=== PATIENT | male | born 1950 | race Caucasian/White ===

== ENCOUNTER 2017-05-29 06:29 | Inpatient (IN) | payer BC ==
[2017-05-23 12:28] VITALS: BMI 31.4
[2017-05-29] MEDS ORDERED: oxyCODONE HCL 10 MG SUSTAINED ACTING TABLET PO STA (06:48)
--- NOTE | 2017-05-29 06:52 | HP ---
History & Physical Update - History History: No Change - Physical Physical: No Change - Assessment Assessment: No Change - Plan Plan: No Change (Here today for electove repair of his L5-S1 spondylolithesis with radiculopathy. Low back pain with RLE extension to include numbness to right foot)
[2017-05-29] MEDS ORDERED: LIDOCAINE 1%/EPI 1:100000 (20 ML MULTI DOSE VIAL) ONE (07:17)
[2017-05-29] MEDS ORDERED: GELATIN, ABSORBABLE 100 EACH SPONGE TP ONE (07:17)
[2017-05-29] MEDS ORDERED: THROMBIN (BOVINE) 5,000 UNIT VIAL TP ONE (07:17)
[2017-05-29] MEDS ORDERED: ePHEDrine SULFATE 50 MG/1 ML AMPULE ONE (07:24)
[2017-05-29] MEDS ORDERED: LIDOCAINE HCL/PF 2% SDV 5ML VIAL ONE (07:24)
[2017-05-29] MEDS ORDERED: ROCURONIUM BROMIDE 50 MG/5 ML VIAL ONE (07:25)
[2017-05-29] MEDS ORDERED: PROPOFOL 20 ML ONE (07:25)
[2017-05-29] MEDS ORDERED: MIDAZOLAM HCL 2 MG/2 ML SINGLE DOSE VIAL ONE ×3 (07:25→09:33)
[2017-05-29] MEDS ORDERED: BUPIVACAINE LIPOSOME/PF (EXPAREL) 266 MG/20 ML VIAL ONE (07:29)
[2017-05-29] MEDS ORDERED: BUPIVACAINE HCL/PF (5 MG/ML) 30 ML VIAL IJ ONE (07:29)
[2017-05-29] MEDS ORDERED: PHENYLEPHRINE HCL 10 MG/1 ML SINGLE DOSE VIAL ONE (07:31)
[2017-05-29] MEDS ORDERED: DEXAMETHASONE SOD PHOSPHATE 4 MG/1 ML VIAL ONE (07:31)
[2017-05-29] MEDS ORDERED: ONDANSETRON 4 MG/2 ML VIAL ONE (07:31)
[2017-05-29] MEDS ORDERED: SODIUM CHLORIDE 0.9% P/F 10 ML VIAL IJ ONE (07:31)
[2017-05-29] MEDS ORDERED: SUCCINYLCHOLINE CHLORIDE 200 MG/10 ML VIAL ONE (07:38)
[2017-05-29] MEDS ORDERED: BUPIVACAINE HCL/PF 0.5% (5MG/ML) 10 ML VIAL ONE (08:39)
[2017-05-29] MEDS ORDERED: GUM MASTIC/STORAX/MSAL/ALCOHOL 1 DRP DROPSBTL MC ONE (11:01)
--- NOTE | 2017-05-29 11:14 | OP ---
Operative Note - Note: Operative Date: 05/29/17 Pre-Operative Diagnosis: Lumbar spondylolithesis with radiculopathy Operation: TLIF L5-S1 Post-Operative Diagnosis: Same as Pre-op Surgeon: Terry Oglesby Chemical Instrumentation Officer: Yair Huntley Anesthesiologist/CONFERENCE ORGANIZER: Debbie Morris (TLI{) Anesthesia: Spinal Estimated Blood Loss (mls): 25 Fluid Volume Replaced (mls): 1,100 Operative Report Dictated: Yes
[2017-05-29] MEDS ORDERED: oxyCODONE HCL 5 MG TABLET PO PRN (11:16)
--- NOTE | 2017-05-29 11:16 | SURG ---
Surgery Assistant Warehouse Manager Note Assistant Warehouse Manager: Yair Huntley PA-C Date of Service: 05/29/17 Diagnosis: L5/S1 spndylolithesis with radiculopathy Procedure: Transforaminal lumbar interbody fusion, decompression, instrumentation L5/S1, allograft implant, neuromonitoring I was present for the entirety of the operative procedure. For further detail, please refer to operative report. Visit type - Case Type Case Type: Scheduled Admission - New patient This patient is new to me today: Yes Date on this admission: 05/29/17
[2017-05-29] MEDS ORDERED: ACETAMINOPHEN 325 MG TABLET (FP) PO SCH (11:30)
[2017-05-29 12:13] VITALS: TEMP 98.3
[2017-05-29] MEDS ORDERED: oxyCODONE HCL 5 MG TABLET ONE ×2 (12:55→14:10)
[2017-05-29] MEDS ORDERED: ONDANSETRON 4 MG/2 ML VIAL IVPUSH PRN (13:27)
[2017-05-29] MEDS ORDERED: LACTATED RINGERS SOLUTION 1,000 ML IV SCH (13:30)
[2017-05-29] MEDS ORDERED: oxyCODONE HCL 5 MG TABLET PO ONE (14:13)
[2017-05-29] MEDS ORDERED: CEFAZOLIN 1 GM/D5W 1 GM/50 ML BAG ONE (16:10)
[2017-05-29] MEDS ORDERED: traMADol HCL 50 MG TABLET ONE (17:14)
[2017-05-29] MEDS ORDERED: CEFAZOLIN 2 GM/D5W 2 GM/50 ML ML IVPB ONE (17:15)
[2017-05-29 17:46] VITALS: BP 152/81; PULSE 81
--- NOTE | 2017-05-29 20:52 | OP ---
DATE OF OPERATION: 05/29/2017 PREOPERATIVE DIAGNOSES: 1. Spondylolisthesis at L5-S1. 2. Spinal stenosis, L5-S1. POSTOPERATIVE DIAGNOSES: 1. Spondylolisthesis at L5-S1. 2. Spinal stenosis, L5-S1. PROCEDURE PERFORMED: 1. Transforaminal lumbar interbody fusion, L5-S1. 2. Placement of instrumentation. 3. Placement of prosthetic cage. SURGEON: Terry Oglesby MD HOT AIR FURNACE INSTALLER REPAIRER: ETHAN Bajwa ESTIMATED BLOOD LOSS: 50 mL INTRAVENOUS FLUIDS: Per Anesthesia. ANESTHESIA: Spinal/TLIP. COMPLICATIONS: None. DISPOSITION: The patient was brought to the PACU in stable condition. INDICATION FOR SURGERY: The patient is a 67-year-old gentleman who has been suffering from pain from his back down his legs. X-rays and MRI were completed which noted that he had spinal stenosis at L5-S1 secondary to a spondylolisthesis. He had gone through an exhaustive course of treatment for this which included medications, physical therapy, as well as injections. Unfortunately, his pain continued to persist despite all this. At this point, risks, benefits, and alternatives were discussed, and the patient consented to surgery. DESCRIPTION OF PROCEDURE: Patient was brought to the operating room by the anesthesia staff. After appropriate patient identification was performed, spinal anesthesia was given. A TLIP block was also given. The patient was able to position himself prone onto the OR table to avoid all bony prominences. The C-arm was brought in. The L5-S1 pedicle was marked off. Next, 10 mL of lidocaine with epinephrine was injected into his back. At this time, his back was prepped and draped in a sterile manner. At this point, timeout was completed. Incisions were made bilaterally over the L5 and S1 pedicles. Dissection was carried down to the fascia. The fascia was then split open at this time. The C-arm was brought in. Trocars were advanced into both the L5 and S1 pedicles. Through the trocars, a guidewire was inserted. Tap was performed. On the right-hand side, screws were inserted with a retractor blade set up, and the [id number] screws were also inserted. Retractor blades were set up to expose the L5-S1 facet joint. This was confirmed with x-ray. The facet joint was removed. Using a series of pituitaries, Kerrisons, and curettes, the diskectomy was completed at this time. Endplates were decorticated at this time. Bone graft was laid down. A cage filled with bone graft was placed in. Tulip heads were placed over the screws. A gildardo was measured and placed in. Caps were placed on. Compression was applied. Final tightening was applied. On the left-hand side, a gildardo was measured and placed in. Gildardo was placed down. Caps were placed on. Compression and final tightening was performed. All extra instrumentation was removed at this time. AP and lateral x-rays confirmed instrumentation to be in good position. The fascia was closed with a No. 1 Vicryl suture. Subcutaneous tissues were closed with 2-0 Vicryl suture. Skin was closed with 3-0 Monocryl suture. Dermabond was applied. Steri-Strips were applied. A sterile dressing was applied. Patient was placed supine on the OR bed and brought to the PACU in stable condition. Dwayne [id number]
== END 2017-05-29 17:15 | disposition home or self-care (01) | DRG 460 ==
LOC: FM/S 06:29
PROVIDERS: ADMIT Orthopaedic Surgery Orthopaedic Surgery of the Spine; ATTEND Orthopaedic Surgery Orthopaedic Surgery of the Spine
PROC: 01NB0ZZ Release Lumbar Nerve, Open Approach (ICD-10-PCS; 2017-05-29)
PROC: 0SG30K1 Fusion of Lumbosacral Joint with Nonautologous Tissue Substitute, Posterior Approach, Posterior Column, Open Approach (ICD-10-PCS; principal; 2017-05-29 09:30)
DX: M43.17 Spondylolisthesis, lumbosacral region (principal); M48.07 Spinal stenosis, lumbosacral region
CPT/HCPCS: 72100-TC-FY; 94760

== ENCOUNTER 2018-04-19 09:04 | Inpatient (IN) | payer BC ==
[2018-04-09 13:09] VITALS: BMI 32.0
--- NOTE | 2018-04-19 07:18 | HP ---
Admitting History and Physical - Admission Chief Complaint: right hip osteoarthritis x years History of Present Illness: 68-year-old male presents in regard to his right hip. Long-standing history of right hip osteoarthritis. Patient complains of pain, limited range of motion, difficulty ambulating, and difficulty completing activities of daily living. Patient has failed conservative treatment measures including PO medications, activity modification, exercise programs, and injections. At this point patient would like to proceed with surgical intervention, right total hip arthroplasty MAKOplasty. - Past Medical History Cardiovascular: Yes: HTN Psych: Yes: Depression - Past Surgical History Additional Past Surgical History: See written history and physical. - Smoking History Smoking history: Never smoked Have you smoked in the past 12 months: No - Alcohol/Substance Use Hx Alcohol Use: Yes (SOCIALLY) Home Medications - Allergies Allergies/Adverse Reactions: Allergies Allergy/AdvReac Type Severity Reaction Status Date / Time No Known Drug Allergies Allergy Verified 04/09/18 12:58 - Home Medications Home Medications: Ambulatory Orders Escitalopram Oxalate [Lexapro -] 10 mg PO DAILY 01/23/17 Hydrocodone/Acetaminophen [Vicodin 5-300 mg Tablet] 1 each PO Q6H PRN #10 tablet MDD 4 05/29/17 Diclofenac Sodium 75 mg PO DAILY 04/09/18 Olmesartan Medoxomil [Benicar (Nf)] 40 mg PO DAILY 04/09/18 Review of Systems - Review of Systems Musculoskeletal: reports: Decreased ROM (right hip), Joint Pain (right hip) Physical Examination Constitutional: Yes: Well Nourished, No Distress Eyes: Yes: Conjunctiva Clear HENT: Yes: Atraumatic, Normocephalic Neck: Yes: Supple Cardiovascular: Yes: Regular Rate and Rhythm Respiratory: Yes: Regular Gastrointestinal: Yes: Soft ...Rectal Exam: Yes: Deferred Musculoskeletal: Yes: Joint Stiffness (Right hip) Assessment/Plan 68-year-old male presents in regard to his right hip. Long-standing history of right hip osteoarthritis. Patient complains of pain, limited range of motion, difficulty ambulating, and difficulty completing activities of daily living. Patient has failed conservative treatment measures including PO medications, activity modification, exercise programs, and injections. At this point patient would like to proceed with surgical intervention, right total hip arthroplasty MAKOplasty. pros, cons, risks, benefits, and alternatives of a right total hip are the plastic were discussed with the patient at length. Patient confirms his understanding and consents to proceed with a right total hip arthroplasty Jcarlos
[~2018-04-19 09:04] MED LIST: CEFAZOLIN 2 GM in DEXTROSE 5%-WATER - 50 ML IVPB ONE; ROPIVICAINE 0.2%/MORPH PF/KETOROLAC - 51ML DISP.SYRINGE IA ONE; TRANEXAMIC ACID 1000 MG/10 ML VIAL IVPUSH ONE
[2018-04-19] MEDS ORDERED: VANCOMYCIN 1,000 MG VIAL (RESTRICTED TO ID ONLY) ONE (09:55)
[2018-04-19] MEDS ORDERED: ceFAZolin SODIUM 1 GM VIAL ONE ×2 (09:55→11:40)
[2018-04-19] MEDS: PANTOPRAZOLE 40 MG TABLET (FP) PO ONE ×2 (10:25→18:04)
[2018-04-19] MEDS: GABAPENTIN 300 MG CAPSULE (FP) PO ONE ×2 (10:25→18:00)
[2018-04-19] MEDS: oxyCODONE HCL 10 MG SUSTAINED ACTING TABLET PO ONE ×2 (10:25→18:00)
[2018-04-19] MEDS: CELECOXIB 200 MG CAPSULE PO ONE ×2 (10:25→18:00)
[2018-04-19] MEDS ORDERED: DEXAMETHASONE SOD PHOSPHATE/PF 10 MG/ML SDV ONE (10:45)
[2018-04-19] MEDS ORDERED: BUPIVACAINE HCL/PF (5 MG/ML) 30 ML VIAL IJ ONE (10:46)
[2018-04-19] MEDS ORDERED: MIDAZOLAM HCL 2 MG/2 ML SINGLE DOSE VIAL ONE (10:46)
[2018-04-19] MEDS ORDERED: oxyCODONE HCL 5 MG TABLET PO PRN ×2 (11:26)
[2018-04-19] MEDS ORDERED: PROMETHAZINE HCL 25 MG/1 ML VIAL IVPUSH PRN (11:26)
[2018-04-19] MEDS ORDERED: ONDANSETRON 4 MG/2 ML VIAL IVPUSH PRN ×2 (11:26→15:34)
[2018-04-19] MEDS ORDERED: DEXAMETHASONE SOD PHOSPHATE 4 MG/1 ML VIAL ONE (11:40)
[2018-04-19] MEDS ORDERED: PROPOFOL 20 ML ONE ×5 (11:40)
[2018-04-19] MEDS ORDERED: SUCCINYLCHOLINE CHLORIDE 200 MG/10 ML VIAL ONE (11:40)
[2018-04-19] MEDS ORDERED: ePHEDrine SULFATE 50 MG/1 ML AMPULE ONE ×2 (12:28→12:42)
[2018-04-19] MEDS ORDERED: TRANEXAMIC ACID 1000 MG/10 ML VIAL ONE (14:10)
[2018-04-19] MEDS ORDERED: ROPIVICAINE 0.2%/MORPH PF/KETOROLAC - 51ML DISP.SYRINGE IA ONE (14:35)
[2018-04-19] MEDS ORDERED: VANCOMYCIN 1,000 MG VIAL (RESTRICTED TO ID ONLY) IVPB ONE (14:36)
[2018-04-19] MEDS ORDERED: TRANEXAMIC ACID 1000 MG/10 ML VIAL IVPB ONE (14:38)
[2018-04-19] MEDS ORDERED: KETOROLAC TROMETHAMINE 30 MG/1 ML VIAL IVPUSH ONE (15:25)
[2018-04-19] MEDS ORDERED: ACETAMINOPHEN 1000 MG/100 ML VIAL (NON FORMULARY) IVPB ONE ×2 (15:30→15:33)
--- NOTE | 2018-04-19 15:33 | OP ---
Operative Note - Note: Operative Date: 04/19/18 Pre-Operative Diagnosis: right hip OA Operation: right PHILIPPE JOSH Post-Operative Diagnosis: Same as Pre-op Surgeon: Emer Noble Mechanic'S Assistant: Leah Garcia Anesthesia: Spinal Estimated Blood Loss (mls): 300
[2018-04-19] MEDS ORDERED: MAG HYDROX/AL HYDROX/SIMETH 30 ML UNIT-DOSE CUP PO PRN (15:34)
[2018-04-19] MEDS ORDERED: MAGNESIUM HYDROX 2400MG/30ML ORAL SUSPENSION 30 ML CUP PO PRN (15:34)
[2018-04-19] MEDS ORDERED: traMADol HCL 50 MG TABLET PO ONE (15:35)
[2018-04-19] MEDS ORDERED: ACETAMINOPHEN INJECTION 100 ML IVPB ONE (15:35)
[2018-04-19] MEDS ORDERED: LACTATED RINGERS SOLUTION 1,000 ML IV SCH (15:45)
--- NOTE | 2018-04-19 15:56 | OP ---
DATE OF OPERATION: 04/19/2018 PREOPERATIVE DIAGNOSIS: Right hip osteoarthritis. POSTOPERATIVE DIAGNOSIS: Right hip osteoarthritis. PROCEDURE: Right total hip replacement with Makoplasty robotic navigation. ATTENDING: Miguel A Jade M.D. ENGRAVER STEEL PLATE: Kelsi Hughes ANESTHESIA: Spinal plus sedation. ESTIMATED BLOOD LOSS: 300 mL. COMPLICATIONS: None. DISPOSITION: The patient was transferred to the PACU in stable condition. IMPLANTS USED: Stevenson Accolade 2 size 6 femoral component, Stevenson Tritanium 62-mm acetabular component, with multiple acetabular screws, MDM bipolar head ball and liner with inner 28 plus 0 mm ceramic head ball. INDICATION: This is a 68-year-old male who presents to the office complaining of severe right hip pain for many years. The patient was seen and examined by Dr. Jade with diagnosis of severe right hip osteoarthritis. He was initially treated conservatively with injections of medications and physical therapy but continued to have severe pain and ambulatory dysfunction, he was therefore indicated for a right total hip replacement. The risks, benefits, and alternatives to the procedure were explained to the patient in great detail, and he elected to proceed with the surgery. DESCRIPTION OF PROCEDURE: On the day of surgery, the patient was taken to the operating room and placed on the OR table. Spinal anesthesia was administered by the anesthesiologist. The patient was then positioned in the lateral decubitus position on the table and all bony prominences were padded. An axillary roll was placed. The operative hip was then prepped and draped in the usual sterile fashion and intravenous antibiotics were given for infection prophylaxis. A surgical time-out was then performed with the team, and the patients identity, procedure, side, availability of implants, and the administration of antibiotics were confirmed. An approximately 15-cm longitudinal incision was made through the skin centered on the greater trochanter of the hip. This dissection was carried down through the subcutaneous tissues to the deep fascia. This fascia was then incised and a Cobra was placed around the inferior femoral neck. Electrocautery was used to reflect the anterior 40% of the gluteus medius and minimus starting at the musculotendinous junction and leaving a cuff for closure. This was reflected to reveal the capsule of the hip joint. An anterior capsulectomy was performed and the femoral head and neck were visualized. Grade 4 changes were noted diffusely throughout the joint. At this point, three small stab incisions were made superior to the main incision along the iliac crest. Three self-drilling Steinmann pins were then placed and the [employer] pelvic array was attached. Reference points on the limb were then entered into the robotic device and the limb length deficiency, offset, and femoral neck resection level were then calculated by the software. The hip was then dislocated with traction and external rotation. An oscillating saw was used to make the femoral neck cut at the level previously templated, and the femoral head was removed. Attention was then turned to the acetabulum. Retractors were then placed around the acetabulum and the labrum was removed. An acetabular checkpoint pin and the [employer] software were used to register the contours of the acetabulum. The acetabulum was then reamed in a single stage to the preoperatively templated size using the Freddy robotic arm. The appropriately sized cup was then impacted and had solid fixation as well as the preset inclination and version of 40 and 20 degrees, respectively. A polyethylene liner was then placed in the cup. Attention was then turned back to the femur, which was externally rotated for improved visualization. A femoral neck elevator was used to present the femoral neck cut, a box osteotome was used to enter the femoral canal, and a canal finder was used to go down the femoral shaft. The Freddy broaches were used sequentially until the optimal scratch fit was achieved. This correlated with the preoperatively templated size. From here, several different offset head and neck configurations were tested until excellent stability and length were obtained. These measurements were quantified using the [employer] software. All trial components were then removed, the femur was copiously irrigated, and the final components were placed. Leg length and stability were checked again and found to be excellent. Irrigation was performed again. Wound closure was started by repairing the abductor muscles with a no. 2 FiberWire stitch in a Krackow configuration passed through bone tunnels in the greater trochanter and tied over a bony bridge. This repair was then reinforced with a 0 V-Loc 180 barbed suture. Next, no. 1 Polysorb and 0 V-Loc 180 were used to close the fascia. The deep subcutaneous tissue was closed with no. 1 Polysorb sutures, and 2-0 Polysorb was used for the superficial subcutaneous tissue. The skin was closed using both 3-0 V-Loc 90 suture in a running subcuticular fashion and SwiftSet skin adhesive. The Freddy array and pins were removed from the iliac crest and the stab incision sites were irrigated and closed with 4-0 Polysorb sutures and SwiftSet skin adhesive. Once this was completed, a sterile dressing was applied. The patient was then awakened and taken to the PACU in stable condition. ADDENDUM: After final implants were placed a 3-minute dilute Betadine lavage was performed. Following this, the wound was thoroughly irrigated with normal saline via pulsatile lavage and wound closure was begun. MIGUEL A JADE M.D. [id number]
[2018-04-19] MEDS: ACETAMINOPHEN 325 MG TABLET (FP) PO SCH (18:05)
[2018-04-19] MEDS: traMADol HCL 50 MG TABLET PO SCH (18:06)
[2018-04-19] MEDS: KETOROLAC TROMETHAMINE 30 MG/1 ML VIAL IVPUSH SCH ×2 (18:06→21:18)
[2018-04-19] MEDS: CEFAZOLIN 2 GM/D5W 2 GM/50 ML ML IVPB SCH (18:34)
[2018-04-19] MEDS: CELECOXIB 200 MG CAPSULE PO SCH (21:17)
[2018-04-19] MEDS: GABAPENTIN 300 MG CAPSULE (FP) PO SCH (21:18)
[2018-04-19] MEDS: oxyCODONE HCL 10 MG SUSTAINED ACTING TABLET PO SCH (21:18)
[2018-04-19] MEDS: SENNOSIDES/DOCUSATE COMBO (SENNA PLUS) TABLET (UD) PO SCH (21:19)
[2018-04-19] MEDS: ASCORBIC ACID 500 MG TABLET (FP) PO SCH (21:19)
[2018-04-20] MEDS ORDERED: DEXAMETHASONE SOD PHOSPHATE 10 MG/1 ML VIAL IVPB ONE
[2018-04-20] MEDS: ACETAMINOPHEN 325 MG TABLET (FP) PO SCH ×4 (02:18→18:43)
[2018-04-20] MEDS: CEFAZOLIN 2 GM/D5W 2 GM/50 ML ML IVPB SCH (02:22)
[2018-04-20] MEDS: traMADol HCL 50 MG TABLET PO SCH ×4 (04:30→17:55)
[2018-04-20] MEDS: KETOROLAC TROMETHAMINE 30 MG/1 ML VIAL IVPUSH SCH ×2 (04:45→09:41)
[2018-04-20 08:22] LABS: HEMATOCRIT 33.3 % (35.4-49); HEMOGLOBIN 11.4 GM/dl (11.7-16.9); MCH 29.6 pg (25.7-33.7); MCHC 34.3 g/dl (32.0-35.9); MEAN CELL VOLUME 86.4 fl (80-96); PLATELET COUNT 148 K/MM3 (134-434); RBC 3.86 M/mm3 (4.00-5.60); RDW 12.1 % (11.9-15.9); WHITE BLOOD COUNT 13.4 K/mm3 (4.0-10.8)
--- NOTE | 2018-04-20 08:33 | PN ---
Progress Note, Physician Chief Complaint: day 1 s/p spinal/block for R THR - Current Medication List Current Medications: Active Medications Acetaminophen (Tylenol -) 650 mg PO Q6H [facility] Stop: 04/22/18 11:29 Last Admin: 04/20/18 06:18 Dose: 650 mg Al Hydroxide/Mg Hydroxide (Mylanta Oral Suspension -) 30 ml PO Q4H PRN PRN Reason: DYSPEPSIA Ascorbic Acid (Vitamin C -) 500 mg PO BID [facility] Last Admin: 04/19/18 21:19 Dose: 500 mg Aspirin (Asa -) 325 mg PO DAILY@0800 [facility] Celecoxib (Celebrex -) 200 mg PO BID [facility] Last Admin: 04/19/18 21:17 Dose: 200 mg Escitalopram Oxalate (Lexapro -) 10 mg PO DAILY [facility] Gabapentin (Neurontin -) 300 mg PO BID [facility] Stop: 04/22/18 21:59 Last Admin: 04/19/18 21:18 Dose: 300 mg Ketorolac Tromethamine (Toradol Injection -) 30 mg IVPUSH Q6H [facility] Stop: 04/20/18 09:46 Last Admin: 04/20/18 04:45 Dose: 30 mg Magnesium Hydroxide (Milk Of Magnesia -) 30 ml PO PRN PRN PRN Reason: CONSTIPATION Multivitamins/Minerals/Vitamin C (Tab-A-Vit -) 1 tab PO DAILY [facility] Ondansetron HCl (Zofran Injection) 4 mg IVPUSH Q6H PRN PRN Reason: NAUSEA Oxycodone HCl (Roxicodone -) 5 mg PO Q3H PRN PRN Reason: PAIN LEVEL 1-5 Oxycodone HCl (Roxicodone -) 10 mg PO Q3H PRN PRN Reason: PAIN LEVEL 6-10 Oxycodone HCl (Oxycontin -) 10 mg PO BID [facility] Stop: 04/22/18 11:26 Last Admin: 04/19/18 21:18 Dose: 10 mg Pantoprazole Sodium (Protonix -) 40 mg PO DAILY [facility] Senna/Docusate Sodium (Pericolace -) 1 tablet PO BID [facility] Last Admin: 04/19/18 21:19 Dose: 1 tablet Tramadol HCl (Ultram -) 50 mg PO Q6HPO [facility] Last Admin: 04/20/18 04:30 Dose: 50 mg Valsartan (Diovan -) 320 mg PO DAILY CRISTINA - Objective Vital Signs: Vital Signs Temperature 98.0 F 04/20/18 06:00 Pulse Rate 71 04/20/18 06:00 Respiratory Rate 18 04/20/18 06:00 Blood Pressure 132/73 04/20/18 06:00 O2 Sat by Pulse Oximetry (%) 100 04/20/18 06:00 Labs: CBC, BMP 04/20/18 07:30 Assessment/Plan Doing well after R THR. Pt was able to ambulate this morning; minimal pain reported. No apparent anesthetic issues or complications noted.
[2018-04-20] MEDS: GABAPENTIN 300 MG CAPSULE (FP) PO SCH ×2 (09:40→21:04)
[2018-04-20] MEDS: SENNOSIDES/DOCUSATE COMBO (SENNA PLUS) TABLET (UD) PO SCH ×2 (09:40→21:04)
[2018-04-20] MEDS: oxyCODONE HCL 10 MG SUSTAINED ACTING TABLET PO SCH ×2 (09:40→21:03)
[2018-04-20] MEDS: ESCITALOPRAM OXALATE 10 MG TABLET (FP) PO SCH (09:40)
[2018-04-20] MEDS: ASPIRIN 325 MG TABLET PO SCH (09:40)
[2018-04-20] MEDS: VALSARTAN 160 MG TABLET (UD) PO SCH (09:40)
[2018-04-20] MEDS: CELECOXIB 200 MG CAPSULE PO SCH ×2 (09:40→21:04)
[2018-04-20] MEDS: PANTOPRAZOLE 40 MG TABLET (FP) PO SCH (09:40)
[2018-04-20] MEDS: MULTIVITAMINS (DAILY MVI) TABLET (FP) PO SCH (09:40)
[2018-04-20] MEDS: ASCORBIC ACID 500 MG TABLET (FP) PO SCH ×2 (09:40→21:04)
[2018-04-20 09:42] LABS: ANION GAP 7 MMOL/L (8-16); BLOOD UREA NITROGEN 23 mg/dl (7-18); CALCIUM 8.2 mg/dl (8.4-10.2); CHLORIDE 101 mmol/L (98-107); CO2 24 mmol/L (22-28); GLUCOSE,RANDOM 154 mg/dl (74-106); POTASSIUM 4.1 mmol/L (3.5-5.1); SODIUM 132 mmol/L (136-145)
[2018-04-20] MEDS ORDERED: PATIENT'S OWN MEDICATION (NON-FORMULARY) (Olmesartan Medoxomil 40 MG) PO SCH (10:00)
--- NOTE | 2018-04-20 22:51 | PN ---
Progress Note (short form) - Note Progress Note: Pt seen and examined. Doing well. AVSS Selected Entries 04/20/18 18:00 Temperature 98.4 F Pulse Rate 80 Respiratory 17 Rate Blood Pressure 135/75 O2 Sat by Pulse 95 Oximetry (%) Oxygen Delivery Room Air Method Laboratory Tests 04/20/18 04/20/18 07:30 07:30 WBC 13.4 H Hgb 11.4 L Hct 33.3 L Plt Count 148 Sodium 132 L Potassium 4.1 Chloride 101 Carbon Dioxide 24 Anion Gap 7 L BUN 23 H Creatinine 1.0 Creat Clearance w eGFR > 60 Random Glucose 154 H Calcium 8.2 L Gen: NAD RLE: c/d/i, NVID A/P POD#1 s/p R JOSH PT/OOB D/C home in AM after PT
--- NOTE | 2018-04-20 22:55 | DS ---
Physical Examination Vital Signs: Vital Signs Temperature 98.4 F 04/20/18 18:00 Pulse Rate 80 04/20/18 18:00 Respiratory Rate 17 04/20/18 20:02 Blood Pressure 135/75 04/20/18 18:00 O2 Sat by Pulse Oximetry (%) 97 04/20/18 20:02 Labs: CBC, BMP 04/20/18 07:30 04/20/18 07:30 Discharge Summary Reason For Visit: RIGHT HIP OSTEOARTHRITIS Current Active Problems Osteoarthritis of right hip (Acute) Procedures: Principal: right PHILIPPE JOSH Hospital Course: Admitted for elective surgery. Procedure performed without complications. Pt received postoperative antibiotic prophylaxis and DVT ppx. Ambulated with physical therapy. Stable for discharge home with outpatient followup. Condition: Stable - Instructions Diet, Activity, Other Instructions: Dr Noble - Hip Replacement Instructions Keep the Aquacel dressing on until removed by Dr. Noble in 10-14 days - it is antibacterial and waterproof and you can shower with it on. Call the office for a follow-up appointment with Dr. Noble in 10-14 days. [phone] Take one Aspirin 325mg daily for 6 weeks to prevent blood clots in your legs. Take one Pantoprazole 40mg daily for 6 weeks to protect against heartburn and ulcers. Take Cephalexin (antibiotic) 3x/day for 10 days to help prevent skin infection. Take Celebrex 200mg twice daily for 30 days to reduce swelling and inflammation. Take a multivitamin, stool softener and extra Vitamin C supplement daily. For pain: *Mild pain (1-3/10): Take 1 Tramadol tablet every 4 hours as needed. Moderate pain (4-6/10): Take 1 Tramadol tablet and 1 Percocet tablet every 4 hours as needed. Severe pain (7-10/10): Take 1 Tramadol tablet and 2 Percocet tablets every 4 hours as needed. Activity: You can put as much weight on the operative leg as you want. For the first 6 weeks, all you need to do is walk around the house, go up/down stairs, and sit down/get up. After 6 weeks when everything is healed (and bone has grown into the implant) you will be sent for more intensive outpatient physical therapy. Always use a walker or cane for balance and to prevent falls. Expect to see swelling / bruising from the operative site all the way down to your toes. Wear the compression stocking on the right leg during the day to minimize how much swelling there is in your foot/ankle. Don't wear the stocking at night. You don't have to wear the stocking on the other leg. Disposition: VNS/HOME HEALTH CARE - Home Medications Comprehensive Discharge Medication List: Ambulatory Orders Escitalopram Oxalate [Lexapro -] 10 mg PO DAILY 01/23/17 Olmesartan Medoxomil [Benicar -] 40 mg PO DAILY 04/09/18 Ascorbic Acid [Vitamin C -] 500 mg PO BID tablet 04/20/18 Aspirin [ASA -] 325 mg PO DAILY@0800 tablet 04/20/18 Celecoxib [CeleBREX -] 200 mg PO BID #60 capsule 04/20/18 Cephalexin Monohydrate [Keflex -] 500 mg PO TID #30 capsule 04/20/18 Multivitamins [Multivit ([facility] Formulary)] 1 tab PO DAILY tab 04/20/18 Oxycodone HCl/Acetaminophen [Percocet 5-325 mg Tablet] 1 - 2 tab PO Q4H PRN #60 tablet MDD 10 04/20/18 Pantoprazole Sodium [Protonix -] 40 mg PO DAILY #40 tablet.ec 04/20/18 Sennosides/Docusate Sodium [Pericolace -] 1 tablet PO BID tablet 04/20/18 traMADol HCL [Ultram -] 50 mg PO Q4H PRN #42 tablet MDD 6 04/20/18
[2018-04-20 23:04] VITALS: PULSE 73
[2018-04-21] MEDS: ACETAMINOPHEN 325 MG TABLET (FP) PO SCH ×2 (00:17→06:18)
[2018-04-21] MEDS: traMADol HCL 50 MG TABLET PO SCH ×2 (00:18→06:17)
[2018-04-21 06:54] VITALS: TEMP 98.5
[2018-04-21] MEDS: ASPIRIN 325 MG TABLET PO SCH (08:30)
[2018-04-21 08:58] LABS: HEMATOCRIT 31.2 % (35.4-49); HEMOGLOBIN 10.2 GM/dl (11.7-16.9); MCH 28.5 pg (25.7-33.7); MCHC 32.6 g/dl (32.0-35.9); MEAN CELL VOLUME 87.6 fl (80-96); MEAN PLT VOLUME 10.4 fl (7.5-11.1); PLATELET COUNT 135 K/MM3 (134-434); RBC 3.56 M/mm3 (4.00-5.60); RDW 12.4 % (11.9-15.9); WHITE BLOOD COUNT 9.4 K/mm3 (4.0-10.8)
[2018-04-21 09:51] VITALS: BP 134/64
[2018-04-21] MEDS: ASCORBIC ACID 500 MG TABLET (FP) PO SCH (09:52)
[2018-04-21] MEDS: VALSARTAN 160 MG TABLET (UD) PO SCH (09:52)
[2018-04-21] MEDS: GABAPENTIN 300 MG CAPSULE (FP) PO SCH (09:52)
[2018-04-21] MEDS: MULTIVITAMINS (DAILY MVI) TABLET (FP) PO SCH (09:53)
[2018-04-21] MEDS: SENNOSIDES/DOCUSATE COMBO (SENNA PLUS) TABLET (UD) PO SCH (09:53)
[2018-04-21] MEDS: CELECOXIB 200 MG CAPSULE PO SCH (09:53)
[2018-04-21] MEDS: PANTOPRAZOLE 40 MG TABLET (FP) PO SCH (09:53)
[2018-04-21] MEDS: ESCITALOPRAM OXALATE 10 MG TABLET (FP) PO SCH (09:53)
[2018-04-21] MEDS: oxyCODONE HCL 10 MG SUSTAINED ACTING TABLET PO SCH (09:55)
--- NOTE | 2018-04-23 15:56 | PATH ---
Surgical Pathology Report Patient Name: CHICA BRO Med. Rec. #: [id number] /Age/Gender: 1950 (Age: 68) / M Account: [id number] Location: [facility] MED-SURG Taken: 04/19/2018 Received: 04/19/2018 Reported: 04/23/2018 Physicians: Emre Noble M.D. Specimen(s) Received HEAD OF RIGHT FEMUR Clinical History Right hip osteoarthritis Final Diagnosis BONE, HEAD OF FEMUR, RIGHT, TOTAL HIP REPLACEMENT MAKOPASTY: BONE WITH DEGENERATIVE JOINT DISEASE. Electronically Signed Sherly Vela M.D. Gross Description Received in formalin, labeled "head of right femur," is a 5.5 x 5.5 x 4.7 cm. femoral head with a 0.5 cm in length portion of femoral neck attached. The margin of resection is smooth. There is a 5.5 cm greatest dimension area of eburnation present. The remaining articular surface is torres-yellow and diffusely granular. The underlying trabecular bone is yellow and hard. A aircraft sales representative section is submitted in one cassette, following decalcification. /04/20/2018 saudi04/20/2018
== END 2018-04-21 11:35 | disposition home health service (06) | DRG 470 ==
LOC: FM/S 09:04
PROVIDERS: ADMIT Student in an Organized Health Care Education/Training Program; ATTEND Student in an Organized Health Care Education/Training Program
PROC: 8E0Y0CZ Robotic Assisted Procedure of Lower Extremity, Open Approach (ICD-10-PCS; 2018-04-19)
PROC: 0SR90JZ Replacement of Right Hip Joint with Synthetic Substitute, Open Approach (ICD-10-PCS; principal; 2018-04-19 12:08)
DX: M16.11 Unilateral primary osteoarthritis, right hip (principal); I10 Essential (primary) hypertension; F32.9 Major depressive disorder, single episode, unspecified
CPT/HCPCS: 36415; 73523-TC-FY; 80048; 85027; 88305-TC; 88311-TC; 94760; 97116-GP; 97162-GP; J0131; J1100